=== PATIENT | female | born 2000 ===

== ENCOUNTER 2023-02-18 08:07 | Emergency (ER) | payer MEDICAID, SELFPAY ==
[2023-02-18 08:08] VITALS: BP 122/78; PULSE 89; RESP 18; TEMP 36.8; O2SAT 100; BMI 33.8
--- NOTE | 2023-02-18 09:08 | ED_ITS ---
HPI - Nausea/Vomiting/Diarrhea General Chief complaint: Nausea/Vomiting/Diarrhea Stated complaint: vomiting Time Seen by Provider: 02/18/23 09:01 Source: patient and family Mode of arrival: ambulatory Limitations: no limitations History of Present Illness HPI Narrative: 22 yo female healthy here with complaints of multiple episodes of NBNB emesis, non-bloody diarrhea, abdominal cramping since 8pm after eating at a [facility] restaurant. Had meat platter (chicken, ham, pork) with pashto fries. No fevers, chills, urinary symptoms. Associated nausea: Yes Related Data Previous Rx's Medication Instructions Recorded ondansetron 4 mg disintegrating 4 mg PO Q6H PRN nausea and 02/18/23 tablet vomiting #10 tabs Allergies Allergy/AdvReac Type Severity Reaction Status Date / Time No Known Allergies Allergy Verified 02/18/23 08:12 Review of Systems Review of Systems: Yes all other systems are reviewed and are negative Constitutional: Constitutional: Reports no additional constitutional complaints, Denies body ache(s), Denies chills, Denies fever(s), Denies headache(s) and Denies weakness Eyes: Eyes: Reports no additional eye complaints and Denies change in vision ENT: Reports system reviewed and no additional complaints, except as documented, Denies dizziness, Denies headache(s), Denies nasal congestion, Denies nasal discharge and Denies neck pain Cardiovascular: Cardiovascular: Reports no additional cardiovascular complaints, Denies chest pain, Denies leg edema and Denies dyspnea Respiratory: Respiratory: Reports no additional respiratory complaints, Denies cough and Denies dyspnea Gastrointestinal: Gastrointestinal: Reports no additional gastrointestinal complaints, Reports abdominal pain, Denies melena, Denies hematochezia, Denies coffee ground emesis, Reports diarrhea, Reports nausea and Reports vomiting Genitourinary: Genitourinary: Reports no additional female genitourinary complaints and Denies urinary incontinence Musculoskeletal: Musculoskeletal: Reports no additional musculoskeletal complaints, Denies back pain, Denies arthralgias, Denies joint swelling, Denies neck pain, Denies numbness and Denies tingling Integumentary/Breasts: Skin/Breast: Reports system reviewed and no additional complaints, except as docu and Denies rash Neurologic: Reports system reviewed and no additional complaints, except as documented, Denies Abnormal speech present, Denies dizziness, Denies headache( s), Denies numbness, Denies tingling and Denies weakness PMF Past Medical History Attestation statement: The following information was validated with the patient. Source: old records reviewed and nursing notes reviewed Social History Social History Alcohol intake: never Smoked in Last 30 Days: No Use of substances other than those prescribed or required for medical reasons: No Advance Directives: No Advance Directives Information Provided: No Physical Exam Vital Signs: Vital Signs: Last Vital Signs Temp 98.2 F 02/18/23 10:55 Pulse 76 02/18/23 10:55 Resp 18 02/18/23 10:55 BP 115/60 02/18/23 10:55 Pulse Ox 99 02/18/23 10:55 O2 Del Method Room Air 02/18/23 10:55 BMI result Body Mass Index 33.8 Const: General: cooperative, healthy appearing, comfortable and no acute distress Orientation/consciousness: patient oriented x3 Limitations: no limitations HEENT: Head: Yes normal to inspection Ears: hearing grossly normal bilaterally General nose exam: Normal external nose present Face and sinus: Yes normal facial exam Mouth: Normal oral and palatal mucosa present Throat: Yes posterior oropharynx normal Eyes: General: appearance normal, both eyes and all related structures Pupils: Equal, round and reactive pupils present Neck: Neck: Yes normal visual inspection Chest: Chest palpation & inspection: normal inspection of the chest Resp: Effort & Inspection: normal respiratory effort Auscultation: clear to auscultation bilaterally Cardio: Rate: regular rate Rhythm: regular rhythm Peripheral pulses: Peripheral pulses 2+ throughout GI: Inspection: Yes normal to inspection Palpation (GI): Soft to palpation and nontender Auscultation: normal bowel sounds Back/Spine/Pelvis: Thoracic/Lumbar Spine: thoracic and lumbar spine normal to inspection Skin: General skin exam: no rashes or lesions noted Neuro: General: patient oriented x3, no focal motor deficits and normal sensation to monofilament Cranial nerves: Yes Equal, round and reactive pupils present Cognition (Neuro): normal cognition Speech: No Abnormal speech present Gait exam (Neuro): Normal gait present Motor exam (neuro): 5/5 motor strength present throughout Extrem: General: Yes normal to inspection Course Course Course Narrative: 1130-Patient still having abdominal cramping, repeat abdominal exam benign. Will give additional IVF, analgesia. W/u to this point unremarkable. Reevaluation(s) Reevaluation #1: 1415-patient is tolerating p.o.. She feels improved. She tells me her abdominal pain is improved. She no longer feels nauseous. Likely viral gastroenteritis. Low concern for acute abdominal pathology. Patient will be discharged home with antiemetic and strict return precautions. Reviewed worrisome signs and symptoms and when to return to the emergency room. Comfortable plan for discharge home Medications Administered Discontinued Medications Generic Name Dose Route Start Last Admin Trade Name Elijahq PRN Reason Stop Dose Admin Famotidine 20 mg 02/18/23 11:23 02/18/23 12:39 Famotidine/Pf 20 Mg/2 Ml Vial IVPUSH 02/18/23 11:24 20 mg ONCE ONE Administration Sodium Chloride 1,000 mls @ 999 mls/hr 02/18/23 09:08 02/18/23 12:53 Ns IV 02/18/23 10:08 Infused .Q1H1M STA Infusion Sodium Chloride 1,000 mls @ 999 mls/hr 02/18/23 11:23 02/18/23 12:43 Ns IV 02/18/23 12:23 999 mls/hr .Q1H1M STA Administration Ketorolac Tromethamine 30 mg 02/18/23 09:08 02/18/23 10:10 Ketorolac Tromethamine 30 Mg/Ml Vial IVPUSH 02/18/23 09:09 30 mg ONCE ONE Administration Morphine Sulfate 4 mg 02/18/23 11:23 02/18/23 12:39 Morphine Sulfate 4 Mg/Ml Cartridge IVPUSH 02/18/23 11:24 4 mg ONCE ONE Administration Protocol Ondansetron HCl 4 mg 02/18/23 09:08 02/18/23 10:11 Ondansetron Hcl 4 Mg/2 Ml Vial IVPUSH 02/18/23 09:09 4 mg ONCE ONE Administration Medical Decision Making Medical Decision Making MDM Narrative: 22 yo female here with vomiting/diarrhea/abdominal cramping since 8pm after eating a [employer] restaurant. No focal abdominal pain on exam. VSS. Will obtain labs, UA, ur preg, GI panel. Will give IVF, antiemetic, analgesia. Differential Diagnosis Differential Diagnoses: The differential diagnosis associated with the presentation includes gastroenteritis low concern for acute appendicitis or abdominal pathology Lab Data MDM Lab Attestation statement: I reviewed the patient's lab results. I reviewed the labs which are unremarkable 02/18/23 09:22 02/18/23 09:22 Labs: Lab Results 02/18/23 02/18/23 02/18/23 Range/Units 09:22 09:22 09:33 WBC 8.1 (4.8-10.8) X10*3/uL RBC 4.98 (4.20-5.50) X10*6/uL Hgb 13.5 (12.0-16.0) g/dl Hct 42.1 (37.0-47.0) % MCV 84.5 (80.0-98.0) fL MCH 27.1 (27.0-33.0) pg MCHC 32.1 (31.0-35.0) g/dl RDW 13.8 (11.0-16.0) % Plt Count 292 (160-400) X10*3/uL MPV 9.8 (9.4-12.3) fL Immature Gran % (Auto) 0.2 (0.0-0.4) % Neut % (Auto) 90.6 H (45-73) % Lymph % (Auto) 5.1 L (20-40) % Howell % (Auto) 3.9 (2-11) % Eos % (Auto) 0.0 (0-4) % Baso % (Auto) 0.2 (0-2) % Lymph # (Auto) 0.4 L (1.2-4.9) X10*3/uL Howell # (Auto) 0.3 (0.1-1.2) X10*3/uL Eos # (Auto) 0.0 (0.0-0.4) X10*3/uL Baso # (Auto) 0.0 (0.0-0.2) X10*3/uL Abs Immat Gran (auto) 0.02 (0.00-0.03) X10*3/uL Absolute Neuts (auto) 7.3 (2.0-8.3) x10*3/uL Absolute Nucleated RBC 0.000 (0.0-0.012) X10*3/uL Nucleated RBC % (auto) 0.0 (0.0-0.2) /100WBC Smear Tech's Comments VERIFIED Sodium 139 (135-145) mmol/L Potassium 3.7 (3.3-5.1) mmol/L Chloride 106 (96-108) mmol/L Carbon Dioxide 21 L (22-29) mmol/L Anion Gap 16 (12-20) BUN 14 (9-16) mg/dL Creatinine 0.78 (0.5-1.4) mg/dL Estim Creat Clear Calc 121.3 Estimated GFR > 60 Random Glucose 102 (60-115) mg/dL Calcium 9.8 (8.4-10.2) mg/dL Total Bilirubin 0.5 (0.0-1.0) mg/dL Direct Bilirubin 0.2 (0.0-0.5) mg/dL AST 20 (5-31) U/L ALT 22 (0-31) U/L Alkaline Phosphatase 74 (39-117) U/L Total Protein 8.7 H (6.5-8.0) g/dL Albumin 4.5 (3.5-5.0) g/dL Urine Color Urine Appearance Urine pH (5.0-9.0) Ur Specific [place] (1.005-1.025) Urine Protein (Neg-Trace) mg/dL Urine Glucose (UA) (Negative) mg/dL Urine Ketones (Negative) mg/dL Urine Blood (Negative) Urine Nitrite (Negative) Ur Leukocyte Esterase (Negative) Urine Test (NEGATIVE) COVID-19 (NOEL) (Negative) COVID-19 Clin Com Influenza Type A (ANDRY) Negative (Negative) Influenza Type B (ANDRY) Negative (Negative) Influenza A & B Note See Note 02/18/23 02/18/23 02/18/23 Range/Units 09:33 10:15 10:15 WBC (4.8-10.8) X10*3/uL RBC (4.20-5.50) X10*6/uL Hgb (12.0-16.0) g/dl Hct (37.0-47.0) % MCV (80.0-98.0) fL MCH (27.0-33.0) pg MCHC (31.0-35.0) g/dl RDW (11.0-16.0) % Plt Count (160-400) X10*3/uL MPV (9.4-12.3) fL Immature Gran % (Auto) (0.0-0.4) % Neut % (Auto) (45-73) % Lymph % (Auto) (20-40) % Howell % (Auto) (2-11) % Eos % (Auto) (0-4) % Baso % (Auto) (0-2) % Lymph # (Auto) (1.2-4.9) X10*3/uL Howell # (Auto) (0.1-1.2) X10*3/uL Eos # (Auto) (0.0-0.4) X10*3/uL Baso # (Auto) (0.0-0.2) X10*3/uL Abs Immat Gran (auto) (0.00-0.03) X10*3/uL Absolute Neuts (auto) (2.0-8.3) x10*3/uL Absolute Nucleated RBC (0.0-0.012) X10*3/uL Nucleated RBC % (auto) (0.0-0.2) /100WBC Smear Tech's Comments Sodium (135-145) mmol/L Potassium (3.3-5.1) mmol/L Chloride (96-108) mmol/L Carbon Dioxide (22-29) mmol/L Anion Gap (12-20) BUN (9-16) mg/dL Creatinine (0.5-1.4) mg/dL Estim Creat Clear Calc Estimated GFR Random Glucose (60-115) mg/dL Calcium (8.4-10.2) mg/dL Total Bilirubin (0.0-1.0) mg/dL Direct Bilirubin (0.0-0.5) mg/dL AST (5-31) U/L ALT (0-31) U/L Alkaline Phosphatase (39-117) U/L Total Protein (6.5-8.0) g/dL Albumin (3.5-5.0) g/dL Urine Color Yellow Urine Appearance Clear Urine pH 5.5 (5.0-9.0) Ur Specific [place] 1.025 (1.005-1.025) Urine Protein Negative (Neg-Trace) mg/dL Urine Glucose (UA) Negative (Negative) mg/dL Urine Ketones 40 (Negative) mg/dL Urine Blood Negative (Negative) Urine Nitrite Negative (Negative) Ur Leukocyte Esterase Negative (Negative) Urine Test NEGATIVE (NEGATIVE) COVID-19 (NOEL) Negative (Negative) COVID-19 Clin Com See Note Influenza Type A (ANDRY) (Negative) Influenza Type B (ANDRY) (Negative) Influenza A & B Note Independent Historian Clinical information obtained from an independent historian. History obtained from or confirmed by: Friend Tests considered The following testing was considered but not selected: Focal abdominal tenderness, normal labs and urine. Low concern for acute abdominal pathology. I do not think that imaging is warranted. Discharge Plan Discharge Clinical Impression: Gastroenteritis Patient Disposition: Home, Self-Care Instructions: Gastroenteritis (ED) Additional Instructions: Your lab work and urine testing or reassuring Your COVID and flu testing are negative Start with clear liquids and advance her diet as tolerated Return for worsening abdominal pain, intractable vomiting, fever greater than 100.4 Prescriptions: New ondansetron 4 mg tablet,disintegrating 4 mg PO Q6H PRN (Reason: nausea and vomiting) Qty: 10 0RF Referrals: Physician,Unknown J [Primary Care Provider] - 1 week (PCP as needed) Stand Alone Forms: Work/School Release Interventions: ED Discharge Assessment Last Done: 02/18/23 14:47 Discharge Date/Time: 02/18/23 14:47
--- OUTSIDE RECORDS SUMMARY | 2023-02-18 09:23 | XMS_ITS | Continuity of Care Document ---
Author Name Unknown Organization [facility] Address [address] [place] [address]- Care Team Providers Care Foundry Manager Name Role Phone Gretchen Chavez MD Primary Care Physician Encounter [facility] [place] Date(s): 10/04/22 - 11/03/[address] [address] Attending Physician: Jeovanny Carl Admitting Physician: AdmtrJeovanny Referring Physician: Admtr, Ar8 Allergies, Adverse Reactions, Alerts No Known Medication Allergies Immunizations Given and Recorded Vaccine Date Status Refusal Reason influenza virus vaccine, inactivated 05/20/22 Give n Medications Aviane 100 mcg-20 mcg oral tablet 1 tablet, By Mouth, Daily, take as instructed on packet, # 90 tablet, 11 Refills, Maintenance, 07/27/22 16:18:00 EST, Tablet, [id number], [place] instructions, 1 tablet By Mouth Daily,Instr:take as instructed on packet, 163, cm, 06/22/22 15... Start Date: 07/27/22 Status: Ordered diclofenac 1% topical gel = 2 Gm, Topically, 4 times a day, apply to back up to 4 times per day, # 240 Gm, 0 Refills, Maintenance, 05/20/22 15:30:00 EDT, [id number], qatari instructions, 163, cm, 05/20/22 14:35:00 EDT, Height Start Date: 05/20/22 Status: Ordered Problem List Condition Confirmation Course Effective Dates Status Health St atus Informant Obese class I Confirmed Active Patient Care team information Care Team Personnel Name: Gretchen Chavez MD Position: S Resident Member Role: PCP Address: Address: [address] [place] [address]- Care Team Related Persons Name: AJAY GUTIÉRREZ Name: MILAGROS DELANEY Address: home [address] [place] [address]
--- OUTSIDE RECORDS SUMMARY | 2023-02-18 09:23 | XMS_ITS | Continuity of Care Document ---
Author Name Unknown Organization [facility] Address [address] [place] [id number]- Care Team Providers Care Stone Cutter Name Role Phone Gretchen Chavez MD Primary Care Physician Encounter [facility] [place] Date(s): 05/30/22 - 06/29/[address] [id number]- [place] Immunizations Given and Recorded Vaccine Date Status Refusal Reason influenza virus vaccine, inactivated 05/20/22 Give n Medications Aviane 100 mcg-20 mcg oral tablet 1 tablet, By Mouth, Daily, take as instructed on packet, # 90 tablet, 11 Refills, Maintenance, 06/22/22 16:38:00 EST, Tablet, [id number], Belarusian instructions, 1 tablet By Mouth Daily,Instr:take as instructed on packet, 163, cm, 06/22/22 15:09... Start Date: 06/22/22 Status: Ordered diclofenac 1% topical gel = 2 Gm, Topically, 4 times a day, apply to back up to 4 times per day, # 240 Gm, 0 Refills, Maintenance, 05/20/22 15:30:00 EDT, [id number], mongolian instructions, 163, cm, 05/20/22 14:35:00 EDT, Height Start Date: 05/20/22 Status: Ordered Problem List Condition Confirmation Course Effective Dates Status Health St atus Informant Obese class I Confirmed Active Patient Care team information Care Team Personnel Name: Gretchen Chavez MD Position: S Resident Member Role: PCP Address: Address: [address] [place] [address]- Care Team Related Persons Name: AJAY GUTIÉRREZ Name: MILAGROS DELANEY Address: home [address] [place] [address]
--- OUTSIDE RECORDS SUMMARY | 2023-02-18 09:23 | XMS_ITS | Continuity of Care Document ---
Author Name Unknown Organization [facility] Address [address] [place] [address]- Care Team Providers Care Manager Of Clinical Name Role Phone Not on Staff, PCP Primary Care Physician Unavail able Encounter [facility] Date(s): 02/17/22 - 03/19/[address] [address]- Care Team Personnel Name: Not on Staff, PCP
--- OUTSIDE RECORDS SUMMARY | 2023-02-18 09:23 | XMS_ITS | Continuity of Care Document ---
Author Name Unknown Organization [facility] Address [address] [place] [address]- Care Team Providers Care Insulation Helper Name Role Phone Gretchen Chavez MD Primary Care Physician [place] [facility] [place](s): 09/07/22 - 12/04/[address] [address] Encounter Diagnosis Low back pain, unspecified(Final) - Discharge Disposition: A-D/C Home Attending Physician: Rasheeda Castano MD Admitting Physician: Rasheeda Castano MD Referring Physician: Rasheeda Castano MD Allergies, Adverse Reactions, Alerts No Known Medication Allergies Immunizations Given and Recorded Vaccine Date Status Refusal Reason influenza virus vaccine, inactivated 05/20/22 Give n Medications Aviane 100 mcg-20 mcg oral tablet 1 tablet, By Mouth, Daily, take as instructed on packet, # 90 tablet, 11 Refills, Maintenance, 07/27/22 16:18:00 EST, Tablet, [id number], Kyrgyz instructions, 1 tablet By Mouth Daily,Instr:take as instructed on packet, 163, cm, 06/22/22 15... Start Date: 07/27/22 Status: Ordered diclofenac 1% topical gel = 2 Gm, Topically, 4 times a day, apply to back up to 4 times per day, # 240 Gm, 0 Refills, Maintenance, 05/20/22 15:30:00 EDT, [id number], eritrean instructions, 163, cm, 05/20/22 14:35:00 EDT, Height Start Date: 05/20/22 Status: Ordered Problem List Condition Confirmation Course Effective Dates Status Health St atus Informant Obese class I Confirmed Active Patient Care team information Care Team Personnel Name: Gretchen Chavez MD Position: [facility] Resident Member Role: PCP Address: Address: [address] [place] [phone]- Care Team Related Persons Name: AJAY GUTIÉRREZ Name: MILAGROS DELANEY Address: home [address] [place] [address]
--- OUTSIDE RECORDS SUMMARY | 2023-02-18 09:23 | XMS_ITS | Continuity of Care Document ---
Author Name Unknown Organization [facility] Address [address] [place] [address]- Care Team Providers Care Clamper Name Role Phone Gretchen Chavez MD Primary Care Physician Encounter [facility] [place] Date(s): 10/27/22 - 11/26/[address] [address]- Allergies, Adverse Reactions, Alerts No Known Medication Allergies Immunizations Given and Recorded Vaccine Date Status Refusal Reason influenza virus vaccine, inactivated 05/20/22 Give n Medications Aviane 100 mcg-20 mcg oral tablet 1 tablet, By Mouth, Daily, take as instructed on packet, # 90 tablet, 11 Refills, Maintenance, 07/27/22 16:18:00 EST, Tablet, [facility], Norwegian instructions, 1 tablet By Mouth Daily,Instr:take as instructed on packet, 163, cm, 06/22/22 15... Start Date: 07/27/22 Status: Ordered diclofenac 1% topical gel = 2 Gm, Topically, 4 times a day, apply to back up to 4 times per day, # 240 Gm, 0 Refills, Maintenance, 05/20/22 15:30:00 EDT, [id number], [place]ol[place] instructions, 163, cm, 05/20/22 14:35:00 EDT, Height Start Date: 05/20/22 Status: Ordered Problem List Condition Confirmation Course Effective Dates Status Health St atus Informant Obese class I Confirmed Active Patient Care team information Care Team Personnel Name: Gretchen Chavez MD Position: S Resident Member Role: PCP Address: Address: [address] [place] [address]- Care Team Related Persons Name: AJAY GUTIÉRREZ Name: MILAGROS DELANEY Address: home [address] [place] [address]
--- OUTSIDE RECORDS SUMMARY | 2023-02-18 09:23 | XMS_ITS | Continuity of Care Document ---
Author Name Unknown Organization [facility] Address [address] [place] [address]- Care Team Providers Care Truck Repair Supervisor Name Role Phone Gretchen Chavez MD Primary Care Physician [place] [facility] [place] [id number] Date(s): 06/22/22 - 07/22/[address] [address]- Attending Physician: Jeovanny Carl Admitting Physician: Jeovanny Carl Referring Physician: Jeovanny Carl Immunizations Given and Recorded Vaccine Date Status Refusal Reason influenza virus vaccine, inactivated 05/20/22 Give n Medications Aviane 100 mcg-20 mcg oral tablet 1 tablet, By Mouth, Daily, take as instructed on packet, # 90 tablet, 11 Refills, Maintenance, 06/22/22 16:38:00 EST, Tablet, [id number], Ukrainian instructions, 1 tablet By Mouth Daily,Instr:take as instructed on packet, 163, cm, 06/22/22 15:09... Start Date: 06/22/22 Status: Ordered diclofenac 1% topical gel = 2 Gm, Topically, 4 times a day, apply to back up to 4 times per day, # 240 Gm, 0 Refills, Maintenance, 05/20/22 15:30:00 EDT, [id number], maori instructions, 163, cm, 05/20/22 14:35:00 EDT, Height Start Date: 05/20/22 Status: Ordered Problem List Condition Confirmation Course Effective Dates Status Health St atus Informant Obese class I Confirmed Active Patient Care team information Care Team Personnel Name: Gretchen Chavez MD Position: S Resident Member Role: PCP Address: Address: [address] [place] [address]- Care Team Related Persons Name: AJAY GUTIÉRREZ Name: MILAGROS DELANEY Address: home [address] [place] [address]
--- OUTSIDE RECORDS SUMMARY | 2023-02-18 09:23 | XMS_ITS | Continuity of Care Document ---
Author Name Unknown Organization [facility] Address [address] [place] [address]- Care Team Providers Care Electronic Train Control Technician Name Role Phone Gretchen Chavez MD Primary Care Phys[id number] Date(s): 09/13/22 - 10/13/[address] [address]- Immunizations Given and Recorded Vaccine Date Status Refusal Reason influenza virus vaccine, inactivated 05/20/22 Give n Medications Aviane 100 mcg-20 mcg oral tablet 1 tablet, By Mouth, Daily, take as instructed on packet, # 90 tablet, 11 Refills, Maintenance, 07/27/22 16:18:00 EST, Tablet, [facility], Yi instructions, 1 tablet By Mouth Daily,Instr:take as instructed on packet, 163, cm, 06/22/22 15... Start Date: 07/27/22 Status: Ordered diclofenac 1% topical gel = 2 Gm, Topically, 4 times a day, apply to back up to 4 times per day, # 240 Gm, 0 Refills, Maintenance, 05/20/22 15:30:00 EDT, [id number], macedonian instructions, 163, cm, 05/20/22 14:35:00 EDT, Height Start Date: 05/20/22 Status: Ordered Problem List Condition Confirmation Course Effective Dates Status Health St atus Informant Obese class I Confirmed Active Patient Care team information Care Team Personnel Name: Gretchen Chavez MD Position: S Resident Member Role: PCP Address: Address: [address] [place] [address]- Care Team Related Persons Name: AJAY GUTIÉRREZ Name: MILAGROS DELANEY Address: home [address] [place] [address]
--- OUTSIDE RECORDS SUMMARY | 2023-02-18 09:23 | XMS_ITS | Continuity of Care Document ---
Author Name Unknown Organization [facility] Address [address] [place] [address]- Care Team Providers Care Corporate Relations Director Name Role Phone Gretchen Chavez MD Primary Care Physician Encounter [facility] [place] Date(s): 11/02/22 - 12/02/[address] [address] Allergies, Adverse Reactions, Alerts No Known Medication Allergies Immunizations Given and Recorded Vaccine Date Status Refusal Reason influenza virus vaccine, inactivated 05/20/22 Give n Medications Aviane 100 mcg-20 mcg oral tablet 1 tablet, By Mouth, Daily, take as instructed on packet, # 90 tablet, 11 Refills, Maintenance, 07/27/22 16:18:00 EST, Tablet, [facility], Kenyan instructions, 1 tablet By Mouth Daily,Instr:take as instructed on packet, 163, cm, 06/22/22 15... Start Date: 07/27/22 Status: Ordered diclofenac 1% topical gel = 2 Gm, Topically, 4 times a day, apply to back up to 4 times per day, # 240 Gm, 0 Refills, Maintenance, 05/20/22 15:30:00 EDT, [id number], swiss instructions, 163, cm, 05/20/22 14:35:00 EDT, Height Start Date: 05/20/22 Status: Ordered Problem List Condition Confirmation Course Effective Dates Status Health St atus Informant Obese class I Confirmed Active Patient Care team information Care Team Personnel Name: Gretchen Chavez MD Position: S Resident Member Role: PCP Address: Address: [address] [place] [address]- Care Team Related Persons Name: AJAY GUTIÉRREZ Name: MILAGROS DELANEY Address: home [address] [place] [address]
--- OUTSIDE RECORDS SUMMARY | 2023-02-18 09:23 | XMS_ITS | Continuity of Care Document ---
Author Name Unknown Organization [facility] Address [address] [place] [id number]- Care Team Providers Care Tracer Powder Blender Name Role Phone Gretchen Chavez MD Primary Care Physician Encounter [facility] [place] Date(s): 09/07/22 - 10/07/[address] [id number]- Immunizations Given and Recorded Vaccine Date Status Refusal Reason influenza virus vaccine, inactivated 05/20/22 Give n Medications Aviane 100 mcg-20 mcg oral tablet 1 tablet, By Mouth, Daily, take as instructed on packet, # 90 tablet, 11 Refills, Maintenance, 07/27/22 16:18:00 EST, Tablet, [id number], Latvian instructions, 1 tablet By Mouth Daily,Instr:take as instructed on packet, 163, cm, 06/22/22 15... Start Date: 07/27/22 Status: Ordered diclofenac 1% topical gel = 2 Gm, Topically, 4 times a day, apply to back up to 4 times per day, # 240 Gm, 0 Refills, Maintenance, 05/20/22 15:30:00 EDT, [id number], indonesian instructions, 163, cm, 05/20/22 14:35:00 EDT, Height Start Date: 05/20/22 Status: Ordered Problem List Condition Confirmation Course Effective Dates Status Health St atus Informant Obese class I Confirmed Active Patient Care team information Care Team Personnel Name: Gretchen Chavez MD Position: S Resident Member Role: PCP Address: Address: [address] [place] [id number]- Care Team Related Persons Name: AJAY GUTIÉRREZ Name: MILAGROS DELANEY Address: home [address] [place] [address]
--- OUTSIDE RECORDS SUMMARY | 2023-02-18 09:23 | XMS_ITS | Continuity of Care Document ---
Author Name Unknown Organization [facility] Address [address] [place] [id number]- Care Team Providers Care Velvet Cutter Name Role Phone Gretchen Chavez MD Primary Care Physician Encounter [facility] [place] Date(s): 07/01/22 - 07/31/[address] [id number] Immunizations Given and Recorded Vaccine Date Status Refusal Reason influenza virus vaccine, inactivated 05/20/22 Give n Medications Aviane 100 mcg-20 mcg oral tablet 1 tablet, By Mouth, Daily, take as instructed on packet, # 90 tablet, 11 Refills, Maintenance, 07/27/22 16:18:00 EST, Tablet, [id number], Indonesian instructions, 1 tablet By Mouth Daily,Instr:take as instructed on packet, 163, cm, 06/22/22 15... Start Date: 07/27/22 Status: Ordered diclofenac 1% topical gel = 2 Gm, Topically, 4 times a day, apply to back up to 4 times per day, # 240 Gm, 0 Refills, Maintenance, 05/20/22 15:30:00 EDT, [id number], georgian instructions, 163, cm, 05/20/22 14:35:00 EDT, Height Start Date: 05/20/22 Status: Ordered Problem List Condition Confirmation Course Effective Dates Status Health St atus Informant Obese class I Confirmed Active Patient Care team information Care Team Personnel Name: Gretchen Chavez MD Position: S Resident Member Role: PCP Address: Address: [address] [place] [id number]- Care Team Related Persons Name: AJAY GUTIÉRREZ Name: MILAGROS DELANEY Address: home [address] [place] [id number]
--- OUTSIDE RECORDS SUMMARY | 2023-02-18 09:23 | XMS_ITS | Continuity of Care Document ---
Author Name Unknown Organization [facility] Address [address] [place] [phone]- Care Team Providers Care Account Developer Name Role Phone Gretchen Chavez MD Primary Care Physician Encounter [facility] [place] [id number] Date(s): 10/14/22 - 11/13/[address] [address]- Attending Physician: Jeovanny Carl Admitting Physician: Jeovanny Carl Referring Physician: AdmtrJeovanny Allergies, Adverse Reactions, Alerts No Known Medication Allergies Immunizations Given and Recorded Vaccine Date Status Refusal Reason influenza virus vaccine, inactivated 05/20/22 Give n Medications Aviane 100 mcg-20 mcg oral tablet 1 tablet, By Mouth, Daily, take as instructed on packet, # 90 tablet, 11 Refills, Maintenance, 07/27/22 16:18:00 EST, Tablet, [id number], Ukrainian instructions, 1 tablet By Mouth Daily,Instr:take as instructed on packet, 163, cm, 06/22/22 15... Start Date: 07/27/22 Status: Ordered diclofenac 1% topical gel = 2 Gm, Topically, 4 times a day, apply to back up to 4 times per day, # 240 Gm, 0 Refills, Maintenance, 05/20/22 15:30:00 EDT, [id number], turkish instructions, 163, cm, 05/20/22 14:35:00 EDT, Height Start Date: 05/20/22 Status: Ordered Problem List Condition Confirmation Course Effective Dates Status Health St atus Informant Obese class I Confirmed Active Patient Care team information Care Team Personnel Name: Gretchen Chavez MD Position: S Resident Member Role: PCP Address: [facility] [address] [facility] [place] [id number]- Care Team Related Persons Name: AJAY GUTIÉRREZ Name: MILAGROS DELANEY Address: home [address] [place] [address]
[2023-02-18 09:37] LABS: Basophils Percent Auto 0.2 % (0-2); Hematocrit 42.1 % (37.0-47.0); Hemoglobin 13.5 g/dl (12.0-16.0); Imm Gran Abs Auto 0.02 X10*3/uL (0.00-0.03); Imm Gran Pct Auto 0.2 % (0.0-0.4); Lymphocytes Absolute Auto 0.4 X10*3/uL (1.2-4.9); Lymphocytes Percent Auto 5.1 % (20-40); MANUAL DIFF FLAG SCAN; Mean Corpuscular HGB Conc 32.1 g/dl (31.0-35.0); Mean Corpuscular Hemoglobin 27.1 pg (27.0-33.0); Mean Corpuscular Volume 84.5 fL (80.0-98.0); Mean Platelet Volume 9.8 fL (9.4-12.3); Monocytes Absolute Auto 0.3 X10*3/uL (0.1-1.2); Monocytes Percent Auto 3.9 % (2-11); Neutrophils Absolute Auto 7.3 x10*3/uL (2.0-8.3); Neutrophils Percent Auto 90.6 % (45-73); Platelet Count 292 X10*3/uL (160-400); Red Blood Count 4.98 X10*6/uL (4.20-5.50); Red Cell Distribution Width 13.8 % (11.0-16.0); SCAN SMEAR FLAG 1; White Blood Count 8.1 X10*3/uL (4.8-10.8)
[2023-02-18 09:52] LABS: COVID-19 Test Negative (Negative); IDNOW Serial# 08D9AD1C
[2023-02-18 09:54] LABS: IDNOW Serial# BCCEAD1C; Influenza A Negative (Negative); Influenza B2 Negative (Negative)
[2023-02-18 10:00] LABS: Alanine Aminotransferase 22 U/L (0-31); Albumin Level 4.5 g/dL (3.5-5.0); Alkaline Phosphatase 74 U/L (39-117); Anion Gap 16 (12-20); Aspartate Amino Transferase 20 U/L (5-31); Bilirubin Direct 0.2 mg/dL (0.0-0.5); Bilirubin Total 0.5 mg/dL (0.0-1.0); Blood Urea Nitrogen 14 mg/dL (9-16); Calcium 9.8 mg/dL (8.4-10.2); Carbon Dioxide 21 mmol/L (22-29); Chloride 106 mmol/L (96-108); Creatinine Clr Calc Pharmacy 121.3; Estimated Glomerular Filt Rate > 60; Glucose Random 102 mg/dL (60-115); Potassium 3.7 mmol/L (3.3-5.1); Sodium 139 mmol/L (135-145); Total Protein 8.7 g/dL (6.5-8.0)
[2023-02-18 10:02] LABS: SLIDE REVIEW VERIFIED
[2023-02-18] MEDS: Ketorolac Tromethamine 30 MG/ML VIAL IVPUSH (10:10)
[2023-02-18] MEDS: 0.9 % Sodium Chloride 1,000 ML 999 ML IV ×2 (10:11→12:43)
[2023-02-18] MEDS: ondansetron HCL 4 MG/2 ML VIAL IVPUSH (10:11)
[2023-02-18 10:29] LABS: Appearance Urine Clear; Color Urine Yellow; Glucose Urine UA Negative (Negative); Leukocyte Esterase Urine Negative (Negative); Nitrite Urine Negative (Negative); PH 5.5 (5.0-9.0); Specific Gravity - Urine 1.025 (1.005-1.025); Urine Blood Negative (Negative); Urine Ketones 40 mg/dL (Negative); Urine Protein Negative (Neg-Trace)
[2023-02-18 10:36] LABS: UPreg QC Valid YES; Urine Pregnancy NEGATIVE (NEGATIVE)
[2023-02-18 10:55] VITALS: BP 115/60; PULSE 76; RESP 18; TEMP 36.8; O2SAT 99
[2023-02-18] MEDS: Famotidine/PF 20 MG/2 ML VIAL IVPUSH (12:39)
[2023-02-18] MEDS: Morphine Sulfate 4 MG/ML CARTRIDGE IVPUSH (12:39)
== END 2023-02-18 14:47 | disposition home or self-care (01) ==
PROVIDERS: Nurse Practitioner Family; Emergency Provider Emergency Medicine
DX: K52.9 Noninfective gastroenteritis and colitis, unspecified (principal); R11.2 Nausea with vomiting, unspecified; Z20.822 Contact with and (suspected) exposure to COVID-19
CPT/HCPCS: 36415; 80048; 80076; 81003; 81025; 85025; 87502; 87635; 96361; 96374; 96375; 99284; 99285; J1885; J2270; J2405

== ENCOUNTER → 2023-09-01 10:37 | Outpatient (BNVA) | payer OTHER, SELFPAY | PROVIDERS: PCP Pediatrics; Visit Provider Surgery ==

== ENCOUNTER 2023-09-14 08:29 | Outpatient (AMB) | payer OTHER, SELFPAY ==
--- NOTE | 2023-09-14 08:32 | MHC.OFFVISWM ---
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 Her goal is to lose enough weight to have a breast reduction. She reports first being concerned about her weight since puberty. . She has tried multiple methods of weight loss including exercise without permanent results. She lives with her father. She works 7 days per week , from 6pm - 4:30 am She wakes at: bed at 7:30 am - wakes at 2-3 pm. Breakfast:5pm - fast food, [place] islander fries and hamburger - fast food, water or lemonade Lunch: 10 pm - rice or pasta, pizza. water. never eats vegetables Dinner: may have something to eat at 5am - But in general never feels hungryrice/beans and meat or pasta with chicken After dinner: none Other snacks: none Liquids:1-2 d/ week Sprite, apple juice 3d/ week Alcohol intake: a few times per year, tobacco:none, marijuana: none Exercise: none, has membership, but has not been there for months DAVINA:3 ESS:12 GERD:3 QOL:97 PFSH Surgical History No history of previous surgery Social History (Updated 09/01/23 @ 11:26 by Kira Soliman CMA) Alcohol intake: never Patient Tobacco Use Status: Never used Tobacco Assessment & Plan Assessment & Plan (1) Obesity: Code(s): E66.9 - Obesity, unspecified Plan: This is a 22 yo woman with obesity who will start MWL program, we discussed that she should loose at least 30 lbs to no longer be obese, Blood work has been ordered. She will start MWL classes and watch all classes before her appt with Tiffanie. 1. Adequate sleep of 7-8 hours per night discussed, 7am - 3pm 2. Healthy meal plan - stop skipping meals and stop fast food. MUst learn how to cook and eat healthy foods. All meals/MR's need to take 20 minutes to complete 5pm - 1 cup rice/beans, 12 forks lean protien and 16 forks vegetables 10 pm - protein shake 2am 12 forks lean protein, 12 forks vegetable, 1/2 c carbs 1 serving fruit May have a protien bar for a snack if needed. Exercise - Cardio at least 4 d week start with elliptical for 300 calories and increaase to goal of 2, 000 agustin/week. Pt will purchase body composition analyzer (recommended list given to patient) and weight herself weekly. Next appt with Tiffanie in 4 weeks. Text me with any questions and weekly weights. Patient is morbidly obese and is not considered stable at this time.?I spent a total of 60 minutes reviewing/updating records, examining the patient and counseling the patient on weight management as detailed above. Coding Level of Care Code New Pt Level 5 (66173) Diagnoses Obesity E66.9
[2023-09-14 08:39] VITALS: BP 127/81; PULSE 61; TEMP 35.7; O2SAT 99; BMI 33.5
== END 2023-09-14 09:11 | disposition home or self-care (01) ==
PROVIDERS: PCP Pediatrics; Visit Provider Physician Assistant
DX: E66.9 Obesity, unspecified (principal); Z68.33 Body mass index [BMI] 33.0-33.9, adult
CPT/HCPCS: 99205

== ENCOUNTER → 2023-09-14 08:29 | Outpatient (BNVA) | payer OTHER, SELFPAY | PROVIDERS: PCP Pediatrics; Visit Provider Physician Assistant | DX: E66.9 Obesity, unspecified (principal); Z68.33 Body mass index [BMI] 33.0-33.9, adult | CPT/HCPCS: 99202 ==

== ENCOUNTER 2024-11-30 00:55 | Emergency (ER) | payer OTHER, SELFPAY ==
[2024-11-30 01:05] VITALS: BP 119/58; PULSE 90; RESP 18; TEMP 36.4; O2SAT 98; BMI 35.0
[2024-11-30 01:19] LABS: MANUAL DIFF FLAG NO
[2024-11-30 01:20] LABS: Basophils Percent Auto 0.2 % (0-2); Eosinophils Percent Auto 0.2 % (0-4); Hematocrit 34.4 % (37.0-47.0); Hemoglobin 12.3 g/dl (12.0-16.0); Imm Gran Abs Auto 0.04 X10*3/uL (0.00-0.03); Imm Gran Pct Auto 0.6 % (0.0-0.4); Lymphocytes Absolute Auto 0.8 X10*3/uL (1.2-4.9); Mean Corpuscular HGB Conc 35.8 g/dl (31.0-35.0); Mean Corpuscular Hemoglobin 31.5 pg (27.0-33.0); Mean Corpuscular Volume 88.2 fL (80.0-98.0); Mean Platelet Volume 9.4 fL (9.4-12.3); Monocytes Absolute Auto 0.5 X10*3/uL (0.1-1.2); Monocytes Percent Auto 7.2 % (2-11); Neutrophils Absolute Auto 5.1 x10*3/uL (2.0-8.3); Neutrophils Percent Auto 79.8 % (45-73); Platelet Count 215 X10*3/uL (160-400); White Blood Count 6.4 X10*3/uL (4.8-10.8)
[2024-11-30 01:28] LABS: Appearance Urine Clear; Color Urine Dark Yellow; Glucose Urine UA Negative (Negative); Leukocyte Esterase Urine Negative (Negative); Nitrite Urine Negative (Negative); PH 5.5 (5.0-9.0); Specific Gravity - Urine 1.025 (1.005-1.025); UPreg QC Valid YES; Urine Blood Negative (Negative); Urine Ketones 80 mg/dL (Negative); Urine Pregnancy POSITIVE (NEGATIVE); Urine Protein Trace mg/dL (Neg-Trace)
[2024-11-30 01:43] LABS: Alanine Aminotransferase 74 U/L (0-31); Albumin Level 3.6 g/dL (3.5-5.0); Alkaline Phosphatase 55 U/L (39-117); Anion Gap 14 (12-20); Aspartate Amino Transferase 50 U/L (5-31); Bilirubin Total 0.3 mg/dL (0.0-1.0); Blood Urea Nitrogen 8 mg/dL (9-16); Calcium 9.4 mg/dL (8.4-10.2); Carbon Dioxide 20 mmol/L (22-29); Chloride 105 mmol/L (96-108); Creatinine Clr Calc Pharmacy 166.3; Estimated Glomerular Filt Rate > 60; Glucose Random 94 mg/dL (60-115); Potassium 3.7 mmol/L (3.3-5.1); Sodium 135 mmol/L (135-145); Total Protein 7.4 g/dL (6.5-8.0)
[2024-11-30 03:35] LABS: HCG Quantitative 29195 mIU/mL
--- NOTE | 2024-11-30 03:41 | PC.NURSE ---
Pt a&ox4, no signs of distress. Pt reports 10/10 abd pain Pts family at bedside Plan of care ongoing.
--- NOTE | 2024-11-30 03:42 | ED.GENADULT ---
HPI - General Adult General Chief complaint: Nausea/Vomiting/Diarrhea Stated complaint: n/v/d Time Seen by Provider: 11/30/24 03:12 Source: patient, RN notes reviewed and old records reviewed Mode of arrival: ambulatory Limitations: no limitations History of Present Illness ED Provider: Corazon GARCIA narrative: 24-year-old female who denies any past medical history presents for evaluation of upper abdominal pain with nausea and vomiting. Patient reports that she is , approximately 18 weeks, she is She reports pain for the last 2 days in his worse after eating. She reports her symptoms started after ?eating something that I think was bad. ? Denies any previous history of abdominal surgery. She does report previous episodes of heartburn prior to her Related Data Home Medications ?Medication ?Instructions ?Recorded ?Confirmed D3 PO 09/01/23 apple cider vinegar PO 09/01/23 ashwagandha PO 09/01/23 biotin PO 09/01/23 probiotic multi-enzyme PO 09/01/23 Previous Rx's ?Medication ?Instructions ?Recorded ondansetron 4 mg disintegrating 4 mg PO Q6H PRN nausea and 02/18/23 tablet vomiting #10 tabs aluminum-mag hydroxide-simethicone 10 ml PO QID PRN dyspepsia #3,000 11/30/24 200 mg-200 mg-20 mg/5 mL oral susp mL (Antacid) ondansetron 4 mg disintegrating 4 mg PO Q8H PRN nausea and 11/30/24 tablet vomiting #20 tabs Allergies Allergy/AdvReac Type Severity Reaction Status Date / Time No Known Allergies Allergy Verified 11/30/24 01:06 Review of Systems Constitutional: Constitutional: Denies body ache(s), Denies chills, Denies fever(s) and Denies headache(s) Eyes: Eyes: Denies blurry vision ENT: Denies vertigo, Denies dizziness and Denies headache(s) Cardiovascular: Cardiovascular: Denies chest pain and Denies dyspnea Respiratory: Respiratory: Denies cough and Denies dyspnea Gastrointestinal: Gastrointestinal: Reports abdominal pain, Reports heartburn, Reports nausea and Reports vomiting Genitourinary: Genitourinary: Denies pelvic pain Musculoskeletal: Musculoskeletal: Denies back pain Integumentary/Breasts: Skin/Breast: Denies rash Neurologic: Denies vertigo, Denies dizziness and Denies headache(s) Psychiatric: Psychiatric: Denies anxiety PMFSH Past Medical History Surgical History No history of previous surgery Social History Social History (Updated 09/01/23 @ 11:26 by Kira Soliman CMA) Alcohol intake: never Patient Tobacco Use Status: Never used Tobacco Smoked in Last 30 Days: No Use of substances other than those prescribed or required for medical reasons: No Do you have a plan to hurt others: No Plan Physical Exam ED Vital Signs: Vital Signs - 24 hr 11/30/24 01:05 Temperature 97.5 F Pulse Rate 90 Respiratory Rate 18 Blood Pressure 119/58 L Pulse Oximetry 98 Oxygen Delivery Method Room Air BMI result Body Mass Index 35.0 Const General: healthy appearing, comfortable, no acute distress, alert and awake Nutritional Appearance: well nourished Orientation/consciousness: patient oriented x3 HENMT Head: Yes normocephalic and Yes atraumatic Eyes Eyelids: Yes eyelids normal Conjunctivae: conjunctivae normal Sclerae: sclerae normal Corneas: corneas normal Pupils: Equal, round and reactive pupils present EOM: EOMs intact bilaterally Neck Neck: Yes full ROM Resp Effort & Inspection: normal respiratory effort, able to speak in complete sentences and not labored GI Inspection: No distended Palpation (GI): Soft to palpation, not firm, Tenderness to palpation present (GI) in the epigastrum and in the LUQ; not in the LLQ, not in the RLQ, not in the RUQ and Tinoco's sign negative, no guarding and not rigid Skin General skin exam: elasticity normal Neuro General: patient oriented x3 Cranial nerves: Yes Equal, round and reactive pupils present and Yes Bilaterally intact EOM present Cognition (Neuro): normal cognition Extrem Other: Moving all extremities well without any obvious deformities Medical Decision Making Medical Decision Making MDM Narrative: 24-year-old female presents for evaluation of upper abdominal pain with nausea and vomiting. She is approximately 18 weeks . She has no leukocytosis but does have a left shift. This is possibly related to a viral origin for her . She has no lower abdominal pain or tenderness. Less likely acute appendicitis. She has no right upper quadrant tenderness. Less likely biliary obstruction or gallstones. She has a very slight elevation of AST and ALT but total bilirubin is 0.3, again less likely biliary obstruction. Her mild elevation of AST and ALT may be related to a viral gastroenteritis. She is quite well appearing with a reassuring exam, stable vital signs and stable labs. Plan to treat with a GI cocktail Differential Diagnosis Differential Diagnoses: The differential diagnosis associated with the presentation includes Hyperemesis gravidarum Peptic ulcer disease Biliary disease Cholelithiasis Gastroenteritis Lab Data MDM Lab Attestation statement: I reviewed the patient's lab results. As above 11/30/24 01:16 11/30/24 01:16 Labs: Lab Results 11/30/24 11/30/24 Range/Units 01:16 01:21 WBC 6.4 (4.8-10.8) X10*3/uL RBC 3.90 L D (4.20-5.50) X10*6/uL Hgb 12.3 (12.0-16.0) g/dl Hct 34.4 L (37.0-47.0) % MCV 88.2 (80.0-98.0) fL MCH 31.5 (27.0-33.0) pg MCHC 35.8 H (31.0-35.0) g/dl RDW 13.0 (11.0-16.0) % Plt Count 215 D (160-400) X10*3/uL MPV 9.4 (9.4-12.3) fL Immature Gran % (Auto) 0.6 H (0.0-0.4) % Neut % (Auto) 79.8 H (45-73) % Lymph % (Auto) 12.0 L (20-40) % [place] % (Auto) 7.2 (2-11) % Eos % (Auto) 0.2 (0-4) % Baso % (Auto) 0.2 (0-2) % Lymph # (Auto) 0.8 L (1.2-4.9) X10*3/uL [place] # (Auto) 0.5 (0.1-1.2) X10*3/uL Eos # (Auto) 0.0 (0.0-0.4) X10*3/uL Baso # (Auto) 0.0 (0.0-0.2) X10*3/uL Abs Immat Gran (auto) 0.04 H (0.00-0.03) X10*3/uL Absolute Neuts (auto) 5.1 (2.0-8.3) x10*3/uL Absolute Nucleated RBC 0.000 (0.0-0.012) X10*3/uL Nucleated RBC % (auto) 0.0 (0.0-0.2) /100WBC Sodium 135 (135-145) mmol/L Potassium 3.7 (3.3-5.1) mmol/L Chloride 105 (96-108) mmol/L Carbon Dioxide 20 L (22-29) mmol/L Anion Gap 14 (12-20) BUN 8 L (9-16) mg/dL Creatinine 0.57 (0.5-1.4) mg/dL Estim Creat Clear Calc 166.3 Estimated GFR > 60 Random Glucose 94 (60-115) mg/dL Calcium 9.4 (8.4-10.2) mg/dL Total Bilirubin 0.3 (0.0-1.0) mg/dL AST 50 H (5-31) U/L ALT 74 H (0-31) U/L Alkaline Phosphatase 55 (39-117) U/L Total Protein 7.4 (6.5-8.0) g/dL Albumin 3.6 (3.5-5.0) g/dL Beta HCG, Quant 90311 mIU/mL Urine Color Dark Yellow Urine Appearance Clear Urine pH 5.5 (5.0-9.0) Ur Specific [place] 1.025 (1.005-1.025) Urine Protein Trace (Neg-Trace) mg/dL Urine Glucose (UA) Negative (Negative) mg/dL Urine Ketones 80 (Negative) mg/dL Urine Blood Negative (Negative) Urine Nitrite Negative (Negative) Ur Leukocyte Esterase Negative (Negative) Urine Test POSITIVE H (NEGATIVE) Discharge Plan Discharge Clinical Impression: Abdominal pain during in second trimester Patient Disposition: Home, Self-Care Instructions: Abdominal Pain (ED) Additional Instructions: Your blood work today was reassuring. Your symptoms may be related to GERD which is frequently exacerbated during Take Maalox as needed for abdominal pain. Use Zofran as needed for nausea and vomiting Follow-up with your OBGYN and primary provider Prescriptions: New ondansetron 4 mg tablet,disintegrating 4 mg PO Q8H PRN (Reason: nausea and vomiting) Qty: 20 0RF alum-mag hydroxide-simeth [Antacid] 200-200-20 mg/5 mL suspension 10 ml PO QID PRN (Reason: dyspepsia) Qty: 3000 0RF Rx Instructions: administer between meals and at bedtime No Action ondansetron 4 mg tablet,disintegrating 4 mg PO Q6H PRN (Reason: nausea and vomiting) Qty: 10 0RF biotin PO apple cider vinegar PO ashwagandha PO D3 PO probiotic multi-enzyme PO Print Language: Kyrgyz
[2024-11-30] MEDS: Magnesium Hydrox/Alum Hydrox 30 ML ORAL.SUSP PO (03:56)
[2024-11-30] MEDS: Lidocaine HCl Viscous 2 % 15 ML SOLUTION MUCOUS MEM (03:56)
[2024-11-30] MEDS: Ondansetron ODT 4 MG TAB.RAPDIS TRANSLINGU (03:56)
[2024-11-30 04:03] VITALS: BP 120/60; PULSE 89; RESP 18; TEMP 36.7; O2SAT 98
--- NOTE | 2024-11-30 04:04 | PC.NURSE ---
Pt medicated per [facility] Plan of care ongoing.
[2024-11-30 04:06] VITALS: BP 120/60; PULSE 89; RESP 18; TEMP 36.7; O2SAT 98
== END 2024-11-30 04:08 | disposition home or self-care (01) ==
LOC: HO.ED 03:54
PROVIDERS: Emergency Provider Internal Medicine; PCP Nurse Practitioner Family
DX: O26.892 Other specified pregnancy related conditions, second trimester (principal); R10.10 Upper abdominal pain, unspecified; R11.2 Nausea with vomiting, unspecified
CPT/HCPCS: 36415; 80053; 81003; 81025; 84702; 85025; 99283; 99284